=== PATIENT | male | born 1950 | race Caucasian/White ===

== ENCOUNTER 2017-01-26 18:36 | Emergency (ER) | payer OTHER ==
[2017-01-26 18:39] VITALS: BMI 30.9
[2017-01-26] MEDS ORDERED: Sodium Chloride 0.9% 1,000 ML IV STA (18:42)
--- NOTE | 2017-01-26 18:47 | ED PDOC ---
Arrival/HPI - General Time Seen by Provider: 01/26/17 18:37 Historian: Patient - History of Present Illness Narrative History of Present Illness (Text): 01/26/17 18:43 66 y/o male, pmh including htn/hypothyroidism/gout/vertigo, allergic to cephalosporin, biba c/o dizziness with nausea/vomiting started this morning around 9am. Pt. stated that he woke up this morning with dizziness, aggravated by the sudden head movement, been feeling nauseous for the entire day, started to vomit about 1 hour ago. Pt. has no chest pain or shortness of breath, no palpitation, no rash, no night sweat, no change in vision, no slurred speech, no other medical or psychological complaints. Past Medical History - Provider Review Nursing Documentation Reviewed: Yes - Infectious Disease Hx of Infectious Diseases: None - Cardiac Hx Cardiac Disorders: Yes Hx Hypertension: Yes - Pulmonary Hx Respiratory Disorders: No - Neurological Hx Neurological Disorder: No - HEENT Hx HEENT Disorder: Yes Hx Cataracts: Yes (with surgery) - Renal Hx Renal Disorder: No Hx Kidney Stones: Yes - Endocrine/Metabolic Hx Endocrine Disorders: Yes Hx Hypothyroidism: Yes Other/Comment: prediabetic- no medications - Hematological/Oncological Hx Blood Disorders: No - Integumentary Hx Dermatological Disorder: No - Musculoskeletal/Rheumatological Hx Musculoskeletal Disorders: No Hx Falls: No - Gastrointestinal Hx Gastrointestinal Disorders: Yes Other/Comment: STILL - Genitourinary/Gynecological Hx Genitourinary Disorders: No - Psychiatric Hx Psychophysiologic Disorder: No Hx Substance Use: No - Surgical History Other/Comment: b/l cataract, 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 - Anesthesia Hx Anesthesia: No Family/Social History - Physician Review Nursing Documentation Reviewed: Yes Family/Social History: Unknown Family HX Smoking Status: Former Smoker Hx Alcohol Use: No Hx Substance Use: No Hx Substance Use Treatment: No Allergies/Home Meds Allergies/Adverse Reactions: Allergies cefuroxime axetil [From Ceftin] Allergy (Verified 07/07/16 00:46) RASH Home Medications: Home Meds Medication Instructions Recorded Confirmed Levothyroxine [Synthroid] 112 mcg PO ACB 07/07/16 01/26/17 Losartan [Cozaar] 50 mg PO DAILY 07/07/16 01/26/17 Ursodiol [Jane] 250 mg PO DAILY 07/07/16 01/26/17 Review of Systems - Review of Systems Constitutional: absent: Fatigue, Fevers Eyes: absent: Vision Changes Respiratory: absent: SOB, Cough Cardiovascular: absent: Chest Pain, SCOTT, Orthopnea Gastrointestinal: Nausea, Vomiting. absent: Abdominal Pain, Diarrhea Neurological: Dizziness. absent: Headache, Focal Weakness, Gait Changes, Speech Changes, Facial Droop Physical Exam Vital Signs Temp Pulse Resp BP Pulse Ox 01/26/17 19:38 97.5 F L 98 H 18 144/84 96 01/26/17 18:48 88 20 99 - Systems Exam Head: Present: Atraumatic, Normocephalic. No: Tenderness, Contusion, Swelling, Ecchymosis, Abrasion, Laceration, Other Pupils: Present: PERRL Extroacular Muscles: Present: EOMI Conjunctiva: Present: Normal Mouth: Present: Moist Mucous Membranes Neck: Present: Normal Range of Motion Respiratory/Chest: Present: Clear to Auscultation, Good Air Exchange. No: Respiratory Distress, Accessory Muscle Use Cardiovascular: Present: Regular Rate and Rhythm, Normal S1, S2. No: Murmurs Abdomen: Present: Normal Bowel Sounds. No: Tenderness, Distention, Peritoneal Signs Back: Present: Normal Inspection Upper Extremity: Present: Normal Inspection. No: Cyanosis, Edema Lower Extremity: Present: Normal Inspection. No: Edema Neurological: Present: GCS=15, Speech Normal, Motor Func Grossly Intact, Memory Normal, Other (+richard reid pike test, normal finger to nose test, normal heel to mcnamara test, no focal neurological deficits. ) Skin: Present: Warm, Dry, Normal Color. No: Rashes Psychiatric: Present: Alert, Oriented x 3, Normal Insight, Normal Concentration Medical Decision Making ED Course and Treatment: 01/26/17 18:48 -labs/ua -CT head -EKG -director pharmaceutical -IVF/zofran/meclizine -Observe and reassess 01/26/17 22:31 -EKG: SR @ 94 BPM, no ST elevation or depression, no T wave inversion, prolonged QT -CT head show no acute significant findings -Labs show no acute findings except potassium 3.4, corrected with potassium 20meq po. -Pt. feels much better, walking around with no focal neurological deficits. -Discharge home with meclizine, zofran, stay hydrated, bed rest, follow up with your own pmd and neurologist within 2 days, return to the ER for any new or worsening signs or symptoms. - Lab Interpretations Lab Results: 01/26/17 19:00 01/26/17 19:00 Lab Results 01/26/17 19:00: WBC 7.3, RBC 4.27, Hgb 14.1, Hct 39.7 L, MCV 93.0, MCH 33.0, MCHC 35.5, RDW 13.1, Plt Count 188, MPV 10.0, Gran % 29.3 L, Lymph % (Auto) 57.0 H, [place] % (Auto) 10.2 H, Eos % (Auto) 3.4, Baso % (Auto) 0.1, Gran # 2.14, Lymph # 4.2 H, [place] # 0.8 H, Eos # 0.3, Baso # 0.01 01/26/17 19:00: Sodium 140, Potassium 3.4 L, Chloride 99, Carbon Dioxide 26, Anion Gap 18, BUN 13, Creatinine 0.7, Est GFR ( Amer) > 60, Est GFR (Non- Af Amer) > 60, Random Glucose 170 H, Calcium 9.6, Total Bilirubin 0.9, AST 34, ALT 42, Alkaline Phosphatase 72, Total Protein 8.6 H, Albumin 4.9 H, Globulin 3.6, Albumin/Globulin Ratio 1.4, Lipase 153 I have reviewed the lab results: Yes Interpretation: No clinic. lab abnormalty - RAD Interpretation Radiology Orders: 01/26/17 18:45 HEAD W/O CONTRAST [CT] Stat FINDINGS: Brain: No acute intracranial hemorrhage. Age-appropriate periventricular white matter disease. No edema. Ventricles: Age-appropriate ventriculomegaly. Bones: No acute displaced fracture. Sinuses: Unremarkable as visualized. No acute sinusitis. Mastoid air cells: Unremarkable as visualized. No mastoid effusion. IMPRESSION: No acute intracranial hemorrhage, or suspicious mass effect. Thank you for allowing us to participate in the care of your patient. Dictated and Authenticated by: Margarita Galan MD 01/26/2017 9:10 PM Eastern Time ([place] & [place]) Gang Boss: Radiologist - EKG Interpretation EKG Interpretation (Text): 01/26/17 18:49 SR @ 94 BPM, no ST elevation or depression, no T wave inversion. Interpreted by ED Physician: Yes Type: 12 lead EKG - Medication Orders Current Medication Orders: Sodium Chloride (Sodium Chloride 0.9%) 1,000 mls @ 250 mls/hr IV .Q4H GARY Last Admin: 01/26/17 21:06 Dose: 250 mls/hr Discontinued Medications Sodium Chloride (Sodium Chloride 0.9%) 1,000 mls @ 999 mls/hr IV .Q1H1M STA Stop: 01/26/17 19:42 Last Admin: 01/26/17 18:57 Dose: 999 mls/hr Meclizine HCl (Antivert) 50 mg PO STAT STA Stop: 01/26/17 18:43 Last Admin: 01/26/17 20:20 Dose: 50 mg Metoclopramide HCl (Reglan) 10 mg IVP STAT STA Stop: 01/26/17 19:36 Ondansetron HCl (Zofran Inj) 4 mg IVP STAT STA Stop: 01/26/17 18:43 Last Admin: 01/26/17 18:57 Dose: 4 mg Potassium Chloride (K-Dur 20 Meq Er Tab) 20 meq PO STAT STA Stop: 01/26/17 19:19 Last Admin: 01/26/17 21:05 Dose: 20 meq - PA / FIRE BEHAVIOR ANALYST / Resident Statement / has reviewed & agrees with the documentation as recorded. Disposition/Present on Arrival - Present on Arrival Any Indicators Present on Arrival: No History of DVT/PE: No History of Uncontrolled Diabetes: No Urinary Catheter: No History of Decub. Ulcer: No History Surgical Site Infection Following: None - Disposition Have Diagnosis and Disposition been Completed?: Yes Diagnosis: Vertigo, Nausea and vomiting, Hypokalemia Disposition: HOME/ ROUTINE Disposition Time: 22:32 Patient Plan: Discharge Condition: IMPROVED Additional Instructions: -Discharge home with meclizine, zofran, stay hydrated, bed rest, follow up with your own pmd and neurologist within 2 days, return to the ER for any new or worsening signs or symptoms. Prescriptions: Meclizine [Antivert] 25 mg PO Q6 #30 tab Ondansetron [Zofran] 4 mg PO Q8H PRN #10 tab PRN Reason: Nausea/Vomiting Referrals: Octavio Agosto MD [Primary Care Provider] - Follow up with primary Andrei Herrera MD [Staff Provider] - Follow up with primary Forms: WORK NOTE
[2017-01-26 19:06] LABS: BASO # 0.01 K/mm3 (0.0-2.0); BASO % 0.1 % (0.0-3.0); EOS # 0.3 (0.0-0.7); EOS % 3.4 % (1.5-5.0); GRAN # 2.14 (1.4-6.5); GRAN % 29.3 % (50.0-68.0); HEMATOCRIT 39.7 % (42.0-52.0); LYMPH # 4.2 (1.2-3.4); MEAN CORPUSCULAR HGB CONC 35.5 g/dl (31.0-37.0); MONO # 0.8 (0.1-0.6); MONO % 10.2 % (1.0-6.0); RED CELL DISTRIBUTION WIDTH 13.1 % (11.5-14.5); WHITE BLOOD COUNT 7.3 10^3/ul (4.5-11.0)
[2017-01-26 19:15] LABS: ALB/GLOB RATIO 1.4 (1.1-1.8); ALKALINE PHOSPHATASE 72 U/L (38-126); ALT/SGPT 42 U/L (7-56); AST/SGOT 34 U/L (17-59); BILIRUBIN,TOTAL 0.9 mg/dL (0.2-1.3); BLOOD UREA NITROGEN 13 mg/dL (7-21); CALCIUM 9.6 mg/dL (8.4-10.5); CARBON DIOXIDE 26 mmol/L (21-33); CHLORIDE 99 mmol/L (98-107); GFR AFRICAN-AMERICAN > 60; GLUCOSE,RANDOM 170 mg/dL (70-110); LIPASE 153 U/L (23-300); POTASSIUM 3.4 mmol/L (3.6-5.0); SODIUM 140 mmol/L (132-148); TOTAL PROTEIN 8.6 g/dL (5.8-8.3)
[2017-01-26] MEDS ORDERED: Potassium Chloride 20 mEq ER Tab PO STA (19:18)
[2017-01-26 19:42] VITALS: RESP 18; TEMP 97.5
[2017-01-26] MEDS ORDERED: Sodium Chloride 0.9% 1,000 ML IV SCH (19:45)
--- NOTE | 2017-01-26 21:10 | CT ---
EXAM: CT Head Without Intravenous Contrast CLINICAL HISTORY: 66 years old, male; Signs and symptoms; Dizziness; Patient HX: Dizziness x 10 hours/nausea/vomiting TECHNIQUE: Axial computed tomography images of the head/brain without intravenous contrast. All CT scans at this facility use one or more dose reduction techniques, viz.: automated exposure control; ma/kV adjustment per patient size (including targeted exams where dose is matched to indication; i.e. head); or iterative reconstruction technique. COMPARISON: CT - HEAD W/O CONTRAST 07/06/2016 9:32:25 PM FINDINGS: Brain: No acute intracranial hemorrhage. Age-appropriate periventricular white matter disease. No edema. Ventricles: Age-appropriate ventriculomegaly. Bones: No acute displaced fracture. Sinuses: Unremarkable as visualized. No acute sinusitis. Mastoid air cells: Unremarkable as visualized. No mastoid effusion. IMPRESSION: No acute intracranial hemorrhage, or suspicious mass effect.
[2017-01-27 03:54] VITALS: BP 140/82; PULSE 85; O2SAT 97
--- NOTE | 2017-01-27 16:23 | CARD ---
APPROVED REPORT EKG Measurement Heart [id number] <Conclusion> Sinus rhythm with 1st degree AV block Left ventricular hypertrophy with repolarization abnormality Prolonged QT Abnormal ECG
== END 2017-01-26 22:43 | disposition home or self-care (01) ==
LOC: ED 18:36
DX: E87.6 Hypokalemia (principal); R11.2 Nausea with vomiting, unspecified; R42 Dizziness and giddiness; Z87.891 Personal history of nicotine dependence; I10 Essential (primary) hypertension; E03.9 Hypothyroidism, unspecified
CPT/HCPCS: 70450; 80053; 83690; 85025; 93005; 96361; 96374; 99285; J2405; J7040

== ENCOUNTER 2017-06-25 16:15 | Emergency (ER) | payer OTHER ==
[2017-06-25 16:15] VITALS: BMI 30.9
[2017-06-25 16:32] VITALS: TEMP 97.9
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
[2017-06-25 18:36] VITALS: RESP 18
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
[2017-06-25 22:20] VITALS: BP 141/82; PULSE 71; O2SAT 98
== END 2017-06-25 21:45 | disposition home or self-care (01) ==
LOC: ED 16:15
DX: S13.4XXA Sprain of ligaments of cervical spine, initial encounter (principal); V43.52XA Car driver injured in collision with other type car in traffic accident, initial encounter; Y92.410 Unspecified street and highway as the place of occurrence of the external cause